=== PATIENT | male | born 1970 | race Two or more races ===

== ENCOUNTER 2018-04-19 17:04 | Emergency (ER) | payer MEDICAID ==
[~2018-04-19] VITALS: Ht 180.3 cm; Wt 82.0 kg
[2018-04-19] MEDS ORDERED: TETANUS, DIPHTHERIA, PERTUSSIS VAC/PF 0.5ML (>7YR OLD) IM ONE (22:15)
[2018-04-19 22:28] VITALS: BP 141/82
== END 2018-04-19 22:41 | disposition home or self-care (01) ==
LOC: ER 20:12
DX: S01.01XA Laceration without foreign body of scalp, initial encounter (principal); Z88.0 Allergy status to penicillin; W22.8XXA Striking against or struck by other objects, initial encounter; Y93.89 Activity, other specified; Y92.810 Car as the place of occurrence of the external cause
CPT/HCPCS: 90471; 90715; 99283; X7700